=== PATIENT | male | born 1960 | race African-American/Black ===

== ENCOUNTER 2023-11-04 20:09 | Emergency (ER) | payer MEDICARE ==
[~2023-11-04] VITALS: Ht 177.8 cm; Wt 122.5 kg
[2023-11-04] MEDS ORDERED: Morphine 4mg INJECTION 4 MG/ML INJ IV STA (20:16)
[2023-11-04] MEDS ORDERED: SODIUM CHLORIDE 0.9% 1000ML 1,000 ML IV STA (20:16)
[2023-11-04] MEDS ORDERED: ONDANSETRON HCL INJ 2MG/ML 2ML 2 MG/ML VIAL IV STA (20:16)
[2023-11-04 20:23] VITALS: TEMP 98.7
[2023-11-04 21:02] LABS: BASOPHILS # (AUTO) 0.1 (0.0-0.1); BASOPHILS % 0.6 % (0.0-1.0); EOSINOPHILS # (AUTO) 0.5 (0.0-0.4); EOSINOPHILS % 4.9 % (0.0-6.0); HEMATOCRIT 40.1 % (38.2-49.6); HEMOGLOBIN 13.5 g/dL (14.0-18.0); LYMPHOCYTES # (AUTO) 4.3 (1.0-3.2); MEAN CORPUSCULAR HEMOGLOBIN 34.9 pg (28-32); MEAN CORPUSCULAR HGB CONC 33.7 g/dL (31-35); MEAN CORPUSCULAR VOLUME 103.6 fL (81-99); MONOCYTES # (AUTO) 0.7 (0.2-0.8); MONOCYTES % 6.5 % (4.4-11.3); NEUTROPHILS # (AUTO) 4.9 (2.1-6.9); NEUTROPHILS % 46.6 % (38.7-80.0); PLATELET COUNT 279 x10e3/uL (140-360); RED BLOOD COUNT 3.87 x10e6/uL (4.3-5.7); RED CELL DISTRIBUTION WIDTH 15.3 % (11.7-14.4); WHITE BLOOD COUNT 10.54 x10e3/uL (4.8-10.8)
[2023-11-04 21:23] LABS: ALANINE AMINOTRANSFERASE 25 IU/L (0-55); ALBUMIN 3.1 g/dL (3.5-5.0); ALBUMIN/GLOBULIN RATIO 0.6 (0.8-2.0); ALKALINE PHOSPHATASE 152 IU/L (40-150); ANION GAP 16.1 mmol/L (8-16); BILIRUBIN,TOTAL 0.2 mg/dL (0.2-1.2); BLOOD UREA NITROGEN 9 mg/dL (7-26); BUN/CREATININE RATIO 9 (6-25); CALCIUM 9.3 mg/dL (8.4-10.2); CARBON DIOXIDE 24 mmol/L (22-29); CHLORIDE 100 mmol/L (98-107); CREATINE KINASE 45 IU/L (30-200); CREATININE, SERUM 0.97 mg/dL (0.72-1.25); EST GLOMERULAR FILTRATION RATE 89 ML/MIN (>=60); GLUCOSE 98 mg/dL (74-118); LIPASE 45 U/L (8-78); POTASSIUM 4.1 mmol/L (3.5-5.1); SODIUM 136 mmol/L (136-145); TOTAL PROTEIN 7.9 g/dL (6.5-8.1)
[2023-11-04] MEDS: ACETAMINOPHEN 325 MG TAB PO STA (21:25)
[2023-11-04 21:36] LABS: TROPONIN I < 0.001 ng/mL (0-0.300)
[2023-11-04 23:29] VITALS: PULSE 68; RESP 16
[2023-11-05 01:53] VITALS: BP 121/59; O2SAT 100
== END 2023-11-05 01:40 | disposition home or self-care (01) ==
LOC: ER 20:17
DX: R10.32 Left lower quadrant pain (principal); K56.41 Fecal impaction; K43.9 Ventral hernia without obstruction or gangrene
CPT/HCPCS: 36415; 74176; 74177; 80053; 80320; 82550; 83690; 84484; 85025; 99284; J7030